=== PATIENT | male | born 1970 | race Caucasian/White ===

== ENCOUNTER 2020-03-17 14:42 | Emergency (ER) | payer MEDICAID, SELFPAY ==
[2020-03-17 14:45] VITALS: BP 156/87; PULSE 63; RESP 18; TEMP 36.4; O2SAT 98
--- NOTE | 2020-03-17 14:51 | ED.GENADUL_ITS ---
Discharge Plan Disposition Patient Disposition: HOME Condition: Stable Discharge Details Chief Complaint: AnimalBite Clinical Impression: Dog bite of left wrist Primary Care Provider: Huyen Mallory ED Provider: Omkar Calero Home Meds and New Rx's Prescriptions: New amoxicillin-pot clavulanate 875-125 mg tablet 1 tab PO BID 7 Days Qty: 14 RF: 0 Discharge Instructions Instructions: Animal Bite (ED) Additional Instructions: Please take Augmentin as prescribed. Your dog bite will be reported by our staff to the [facility] offices. Return to ER for any acute concern. Medical Decision Making 49-year-old male bitten by a stray dog at the [facility] yesterday. Now reports mild erythema at the area of the puncture wounds. States the dog was not acting rabid and that the bite is to be reported. I will place the patient on Augmentin empirically for probable early cellulitis. He is stable for discharge. HPI General Mode of arrival: ambulatory . Date/Time Provider Initiated Documentation: 03/17/20 14:44 . Limitations to Documentation: no limitations . Information obtained by: patient . History of Present Illness 49 year old M presents to the emergency department with the chief complaint of Left wrist dog bite yesterday, described as mild, Quality is described as dull, and is localized to the left and upper extremity. Patient reports no radiation. Patient started experiencing this hour(s) and it has been constant. No relieving factors improve symptom(s), No exacerbating factors reported . Patient notes denies fever/chills. Patient did receive the following treatments prior to arrival, other (Cleansed and soaked at home) Related Data Home Medications Medication Instructions Recorded Confirmed amoxicillin-pot clavulanate 1 tab PO BID 7 Days #14 tab 03/17/20 Previous Rx's Medication Instructions Recorded amoxicillin-pot clavulanate 1 tab PO BID 7 Days #14 tab 03/17/20 Allergies Allergy/AdvReac Type Severity Reaction Status Date / Time No Known Allergies Allergy Unverified 03/17/20 14:49 General Stated Complaint: AnimalBite VINCENT: 4 Review of Systems Narrative: Tetanus up-to-date. States he does not believe the dog was rabid, dog bite to be reported. 4 systems reviewed and otherwise negative [facility] Social History Smoking/Tobacco Use Status: Current every day Alcohol Intake: current Do you feel safe at home: Yes Exam Narrative Exam Narrative: GEN: awake, alert, oriented 3. Pleasant, well groomed, interactive. HEAD: Normocephalic, atraumatic EXT: Full ROM, no edema, there is 2 puncture wounds present on the ulnar aspect of the patient's left wrist. Minimal surrounding erythema. Full range of motion, no fluctuance. Neuro: Grossly normal neurologic exam, conversant, interactive. Psych: Speech fluent, thoughts congruent, affect normal Course Vital Signs Vital signs: Vital Signs Temperature 36.4 C L 03/17/20 14:45 Pulse 63 03/17/20 14:45 Respiratory Rate 18 03/17/20 14:45 Blood Pressure 156/87 H 03/17/20 14:45 Pulse Oximetry 98 03/17/20 14:45 Temperature 36.4 C L 03/17/20 14:45 Temperature Source Skin 03/17/20 14:45 Pulse 63 03/17/20 14:45 Respiratory Rate 18 03/17/20 14:45 Respiratory Effort Non-Labored 03/17/20 14:49 Blood Pressure 156/87 H 03/17/20 14:45 Blood Pressure Position Supine 03/17/20 14:45 Pulse Oximetry 98 03/17/20 14:45 Oxygen Delivery Method Room Air 03/17/20 14:45 Oxygen Flow Rate 0 03/17/20 14:45 Pain Level 0 03/17/20 14:45
[2020-03-17] MEDS: Amoxicillin 875/Clav. 125 TAB PO (15:04)
--- NOTE | 2020-03-17 16:32 | NUR.NOTE ---
Addendum entered by Radha Beach 03/18/20 12:25: Spoke with Ernestina Murillo about the animalbite and she is aware of the incident. Radha Beach Original Note: Message left for Ernestina [facility] [place] to report dog bite. Asked that she please call back. Form faxed to [facility].Nursing Note:
== END 2020-03-17 15:09 | disposition home or self-care (01) ==
PROVIDERS: Emergency Provider Emergency Medicine; PCP Pediatrics Pediatric Rheumatology
DX: S61.552A Open bite of left wrist, initial encounter (principal); W54.0XXA Bitten by dog, initial encounter
CPT/HCPCS: 99283

== ENCOUNTER 2020-11-19 16:41 | Outpatient (REF) | payer MEDICAID, SELFPAY ==
[2020-11-19 14:03] LABS: HCT 42.1 % (40.0-50.0); HGB 13.9 g/dL (13.5-17.5); MCH 29.6 pg (27.0-33.0); MCV 89.6 fL (80-95); MPV 10.8 fL (8.0-11.0); Platelet Count 193 10^3/uL (130-400); RDW 12.6 % (11.8-14.1); RDW-SD 41.5 fL; WBC 5.95 10^3/uL (4.4-10.8)
[2020-11-19 14:18] LABS: Hemoglobin A1C 5.8 % (<5.7)
[2020-11-19 14:57] LABS: ALT 24 U/L (16-63); AST 16 U/L (15-37); Albumin 3.9 g/dL (3.4-5.0); Alkaline Phosphatase 58 U/L (46-116); Anion Gap 7.7 mmol/L (3-11); BUN 14 mg/dL (7-18); Bilirubin, Total 0.7 mg/dL (0.2-1.0); CO2 30.3 mmol/L (21.0-32.0); CREATININE 0.9 mg/dL (0.70-1.30); Calcium 9.3 mg/dL (8.5-10.1); Calculated LDL 129 mg/dL (<100); Chloride 105 mmol/L (98-107); Cholesterol 197 mg/dL (<200); Glucose 91 mg/dL (74-106); HDL Cholesterol 46 mg/dL (40-60); Potassium 4.2 mmol/L (3.5-5.1); Sodium 143 mmol/L (136-145); Total Protein 6.8 g/dL (6.4-8.2); Triglyceride 112 mg/dL (<150)
== END 2020-11-19 16:42 | disposition home or self-care (01) ==
LOC: NCHCN 16:41
PROVIDERS: PCP Pediatrics Pediatric Rheumatology; Visit Provider Nurse Practitioner Community Health
DX: R73.03 Prediabetes (principal); I10 Essential (primary) hypertension; F17.210 Nicotine dependence, cigarettes, uncomplicated; J44.9 Chronic obstructive pulmonary disease, unspecified; Z68.32 Body mass index [BMI] 32.0-32.9, adult
CPT/HCPCS: 80053; 80061; 85027; 83036

== ENCOUNTER 2021-04-26 16:38 | Outpatient (REF) | payer MEDICAID, SELFPAY | END 2021-04-26 16:39 | disposition home or self-care (01) | LOC: NCHCN 16:38 | PROVIDERS: PCP Pediatrics Pediatric Rheumatology; Visit Provider Nurse Practitioner Community Health | DX: L08.9 Local infection of the skin and subcutaneous tissue, unspecified (principal) | CPT/HCPCS: 87070; 87186; 87205 ==

== ENCOUNTER 2021-08-10 17:44 | Outpatient (REF) | payer MEDICAID, SELFPAY ==
[2021-08-10 22:12] LABS: ALT 42 U/L (16-63); AST 23 U/L (15-37); Albumin 3.8 g/dL (3.4-5.0); Alkaline Phosphatase 60 U/L (46-116); Anion Gap 3.9 mmol/L (3-11); BUN 14 mg/dL (7-18); Bilirubin, Total 0.4 mg/dL (0.2-1.0); CO2 32.1 mmol/L (21.0-32.0); CREATININE 0.7 mg/dL (0.70-1.30); Calcium 9.2 mg/dL (8.5-10.1); Chloride 104 mmol/L (98-107); Glucose 107 mg/dL (74-106); Potassium 4.5 mmol/L (3.5-5.1); Sodium 140 mmol/L (136-145); Total Protein 6.9 g/dL (6.4-8.2)
== END 2021-08-10 17:45 | disposition home or self-care (01) ==
LOC: NCHCN 17:44
PROVIDERS: PCP Pediatrics Pediatric Rheumatology; Visit Provider Nurse Practitioner Family
DX: I10 Essential (primary) hypertension (principal); F11.11 Opioid abuse, in remission
CPT/HCPCS: 80053

== ENCOUNTER 2022-01-06 17:18 | Outpatient (REF) | payer MEDICAID, SELFPAY ==
[2022-01-06 20:26] LABS: Anion Gap 7.5 mmol/L (3-11); BUN 19 mg/dL (7-18); CO2 33.5 mmol/L (21.0-32.0); CREATININE 0.9 mg/dL (0.70-1.30); Calcium 9.5 mg/dL (8.5-10.1); Chloride 99 mmol/L (98-107); Glucose 79 mg/dL (74-106); Potassium 3.8 mmol/L (3.5-5.1); Sodium 140 mmol/L (136-145)
== END 2022-01-06 17:19 | disposition home or self-care (01) ==
LOC: NCHCN 17:18
PROVIDERS: PCP Pediatrics Pediatric Rheumatology; Visit Provider Nurse Practitioner Family
DX: I10 Essential (primary) hypertension (principal)
CPT/HCPCS: 80048

== ENCOUNTER 2022-09-29 18:31 | Outpatient (REF) | payer MEDICAID, SELFPAY ==
[2022-09-29 21:09] LABS: Hemoglobin A1C 6.1 % (<5.7)
[2022-09-29 21:24] LABS: Anion Gap 5.7 mmol/L (3-11); BUN 16 mg/dL (7-18); CO2 31.3 mmol/L (21.0-32.0); CREATININE 0.9 mg/dL (0.70-1.30); Calcium 9.6 mg/dL (8.5-10.1); Calculated LDL 100 mg/dL (<100); Chloride 106 mmol/L (98-107); Cholesterol 182 mg/dL (<200); Estimated GFR 102.12 (mL/min/1.73m2); Glucose 92 mg/dL (74-106); HDL Cholesterol 58 mg/dL (40-60); Potassium 4.4 mmol/L (3.5-5.1); Sodium 143 mmol/L (136-145); Triglyceride 120 mg/dL (<150)
== END 2022-09-29 18:32 | disposition home or self-care (01) ==
LOC: NCHCN 18:31
PROVIDERS: PCP Pediatrics Pediatric Rheumatology; Visit Provider Nurse Practitioner Family
DX: I10 Essential (primary) hypertension (principal); R73.03 Prediabetes; E66.8 Other obesity
CPT/HCPCS: 80048; 80061; 83036

== ENCOUNTER 2022-12-07 17:38 | Outpatient (REF) | payer MEDICAID, SELFPAY ==
[2022-12-07 22:10] LABS: ALT 26 U/L (16-63); AST 28 U/L (15-37); Alkaline Phosphatase 74 U/L (46-116); Bilirubin, Direct 0.1 mg/dL (0.0-0.2); Bilirubin, Total 0.5 mg/dL (0.2-1.0); Total Protein 7.4 g/dL (6.4-8.2)
== END 2022-12-07 17:39 | disposition home or self-care (01) ==
LOC: NCHCN 17:38
PROVIDERS: PCP Pediatrics Pediatric Rheumatology; Visit Provider Nurse Practitioner Family
DX: I10 Essential (primary) hypertension (principal); Z51.81 Encounter for therapeutic drug level monitoring
CPT/HCPCS: 80076

== ENCOUNTER 2023-02-28 18:39 | Outpatient (REF) | payer MEDICAID, SELFPAY ==
[2023-02-28 21:41] LABS: ALT 31 U/L (16-63); AST 26 U/L (15-37); Albumin 3.8 g/dL (3.4-5.0); Alkaline Phosphatase 79 U/L (46-116); Anion Gap 8.7 mmol/L (3-11); BUN 11 mg/dL (7-18); Bilirubin, Total 0.5 mg/dL (0.2-1.0); CO2 32.3 mmol/L (21.0-32.0); Calcium 9.5 mg/dL (8.5-10.1); Chloride 102 mmol/L (98-107); Glucose 88 mg/dL (74-106); Potassium 3.9 mmol/L (3.5-5.1); Sodium 143 mmol/L (136-145); Total Protein 7.1 g/dL (6.4-8.2)
[2023-03-02 11:09] LABS: HIV-1/2 Ag & Ab Screen Negative (Negative)
[2023-03-02 13:40] LABS: Hepatitis C Ab w Rflx HCV PCR Negative (Negative)
== END 2023-02-28 18:40 | disposition home or self-care (01) ==
LOC: NCHCN 18:39
PROVIDERS: PCP Pediatrics Pediatric Rheumatology; Visit Provider Nurse Practitioner Family
DX: Z51.81 Encounter for therapeutic drug level monitoring (principal); F11.11 Opioid abuse, in remission
CPT/HCPCS: 80053; 86803; 87389

== ENCOUNTER 2023-07-05 18:03 | Outpatient (REF) | payer MEDICAID, SELFPAY ==
--- OUTSIDE RECORDS SUMMARY | 2023-07-05 18:05 | XMS_ITS | Continuity of Care Document ---
Author Name Unknown Organization [facility] Address [address] [place] [address] Phone Care Team Providers Care Drafter Name Role Phone Jessica DMD, Gopichand Unavailable Unav ailable Allergies, Adverse Reactions, Alerts Substance Reaction Status Criticality No Known allergies Medications Medication Instructions Dosage Effective Dates (start - stop) Status Comments Lomotil 2.5 mg-0.025 mg Tab take 1 Tablet (2.5MG) by oral route 4 times every day as needed for DIARRHEA 2.5 MG - Active promethazine 25 mg Tab take 1 tablet (25MG) by oral route 3 times every day as needed for NAUSEA 25 MG - Active clonidine 0.1 mg Tab take 1 tablet (0.1MG) by ORAL route every 4 hours as needed for withdrawl symptoms 0.1 MG - Active AVINZA (unknown strength) take 1 capsule by oral route every 24 hours Not Available - Active METHADONE HCL (unknown strength) take 1 tablet by oral route every 4 hours as needed Not Available - Active Procedures Procedure Date Intraoral Periapical First Cam 12 Limit Oral Eval-prob Focused Urgent Care Intraor Periapical Ea Add Film 12 Extraction, Erupted Tooth Root 12 Treatment Plan In Progress Extraction, Erupted Tooth Root 12 Intraoral Periapical First Cam 11 Intraor Periapical Ea Add Film 11 Limit Oral Eval-prob Focused Ur[facility] Extraction, Erupted Tooth Root 11 Urgent Care Extraction, Erupted Tooth Root 11 Offic/outpt E&m New Minor 10mi 11 Advance Directives Directive Yes / No Effective Date File Name No Information Encounters Encounter Description Practice Location Reason(s) For Visit Diagnoses Date Provider Providers Copied on Encounter [facility] , [address] [place] [address], [id number], tel:[phone] [facility] 2 Vallabhaneni Gopichand. [address] [place] [address], [id number], [place]. tel:[phone] [address] [place] [address] , [address] [place] [address], [id number], tel:[phone] [facility] 1 Vallabhaneni Gopichand. [address] [place] [address], [id number], [place]. tel:[phone] Offic/outpt E&m New Minor 10[facility] , [address] [place] [address], [id number], tel:[phone] [facility] establish care (chief complaint) sleep apnea (chief complaint) chronic pain (chief complaint) OPIOID DEPENDENCE-CONT INSLEEP APNEA NOSCHRONIC PAIN SYNDROMEFRACTUR E CALCANEUS-CLOSE 1 No Information Family History Family Member Type Diagnosis Age At Onset No Information Payers Payer name Insurance type Covered republican ID Crystal noble(s) [employer] [id number] Social History Type Description Quantity Date Captured Comments Sex Male Smoking Status No Information Chief Complaint And Reason For Visit No Information Reason For Referral Reason For Referral No Information History Of Present Illness Encounter Date Complaint History Of Prese nt Illness No Information Functional Status Date Functional Assessmen t No Information Instructions Date Instruction Additional Infor mation No Information Assessments Type Assessment Date No Information Patient Care Teams Name Effective Dates (start - stop) Status Members No Information
[2023-07-05 22:04] LABS: BUN 13 mg/dL (7-18); CREATININE 0.9 mg/dL (0.70-1.30); Calcium 9.6 mg/dL (8.5-10.1); Estimated GFR 101.49 (mL/min/1.73m2); Glucose 83 mg/dL (74-106)
[2023-07-05 22:06] LABS: Albumin 3.6 g/dL (3.4-5.0); Bilirubin, Total 0.6 mg/dL (0.2-1.0); Total Protein 7.2 g/dL (6.4-8.2)
[2023-07-05 22:07] LABS: ALT 36 U/L (16-63); AST 38 U/L (15-37); Alkaline Phosphatase 61 U/L (46-116); Anion Gap 5.7 mmol/L (3-11); CO2 28.3 mmol/L (21.0-32.0); Chloride 101 mmol/L (98-107); Potassium 4.4 mmol/L (3.5-5.1); Sodium 135 mmol/L (136-145)
== END 2023-07-05 18:04 | disposition home or self-care (01) ==
LOC: NCHCN 18:03
PROVIDERS: PCP Pediatrics Pediatric Rheumatology; Visit Provider Nurse Practitioner Family
DX: F11.21 Opioid dependence, in remission (principal)
CPT/HCPCS: 80053

== ENCOUNTER 2023-11-02 18:33 | Outpatient (REF) | payer MEDICAID, SELFPAY ==
[2023-11-02 21:02] LABS: ALT 30 U/L (16-63); AST 28 U/L (15-37); Albumin 3.9 g/dL (3.4-5.0); Alkaline Phosphatase 77 U/L (46-116); Bilirubin, Direct 0.1 mg/dL (0.0-0.2); Bilirubin, Total 0.6 mg/dL (0.2-1.0); Total Protein 7.4 g/dL (6.4-8.2)
== END 2023-11-02 18:34 | disposition home or self-care (01) ==
LOC: NCHCN 18:33
PROVIDERS: PCP Pediatrics Pediatric Rheumatology; Visit Provider Nurse Practitioner Family
DX: Z51.81 Encounter for therapeutic drug level monitoring (principal)
CPT/HCPCS: 80076

== ENCOUNTER 2024-06-11 15:09 | Outpatient (REF) | payer MEDICAID, SELFPAY ==
[2024-06-11 21:54] LABS: ALT 25 U/L (16-63); AST 20 U/L (15-37); Albumin 3.8 g/dL (3.4-5.0); Alkaline Phosphatase 66 U/L (46-116); BUN 11 mg/dL (7-18); Bilirubin, Total 0.54 mg/dL (0.2-1.0); Calcium 9.7 mg/dL (8.5-10.1); Calculated LDL 109 mg/dL (<100); Chloride 102 mmol/L (98-107); Cholesterol 194 mg/dL (<200); Estimated GFR 89.44 (mL/min/1.73m2); Glucose 91 mg/dL (74-106); HDL Cholesterol 58 mg/dL (40-60); Potassium 4.4 mmol/L (3.5-5.1); Sodium 143 mmol/L (136-145); Total Protein 7.5 g/dL (6.4-8.2); Triglyceride 139 mg/dL (<150)
== END 2024-06-11 15:10 | disposition home or self-care (01) ==
LOC: NCHCN 15:09
PROVIDERS: PCP Pediatrics Pediatric Rheumatology; Visit Provider Nurse Practitioner Family
DX: F11.21 Opioid dependence, in remission (principal); I10 Essential (primary) hypertension
CPT/HCPCS: 80053; 80061

== ENCOUNTER 2024-11-26 03:27 | Outpatient (REF) | payer MEDICAID, SELFPAY ==
[2024-11-26 22:04] LABS: ALT 37 U/L (16-63); AST 33 U/L (15-37); Albumin 3.9 g/dL (3.4-5.0); Alkaline Phosphatase 64 U/L (46-116); Bilirubin, Total 0.5 mg/dL (0.2-1.0); Total Protein 7.4 g/dL (6.4-8.2)
[2024-11-26 22:42] LABS: Bilirubin, Direct 0.1 mg/dL (0.0-0.2)
== END 2024-11-26 03:28 | disposition home or self-care (01) ==
LOC: NCHCN 03:27
PROVIDERS: PCP Pediatrics Pediatric Rheumatology; Visit Provider Physician Assistant
DX: R94.5 Abnormal results of liver function studies (principal); F11.21 Opioid dependence, in remission
CPT/HCPCS: 80076

== ENCOUNTER 2025-02-26 09:46 | Outpatient (REF) | payer MEDICAID, SELFPAY ==
[2025-02-26 15:08] LABS: HCT 46.9 % (40.0-50.0); HGB 15.5 g/dL (13.5-17.5); MCH 28.9 pg (27.0-33.0); MCHC 33.0 % (32.0-36.0); MCV 87 fL (80-95); MPV 10.7 fL (8.0-11.0); Platelet Count 213 10^3/uL (130-400); RBC 5.37 10^6/uL (4.36-5.78); RDW 13.0 % (11.8-14.1); RDW-SD 41.8 fL; WBC 6.80 10^3/uL (4.4-10.8)
[2025-02-26 15:55] LABS: Hemoglobin A1C 5.8 % (<5.7)
[2025-02-26 16:05] LABS: ALT 26 U/L (16-63); AST 22 U/L (15-37); Albumin 4.3 g/dL (3.4-5.0); Alkaline Phosphatase 79 U/L (46-116); Anion Gap 6.0 mmol/L (3-11); BUN 17 mg/dL (7-18); Bilirubin, Total 0.7 mg/dL (0.2-1.0); CO2 32.0 mmol/L (21.0-32.0); Calcium 10.0 mg/dL (8.5-10.1); Calculated LDL 122 mg/dL (<100); Chloride 101 mmol/L (98-107); Cholesterol 202 mg/dL (<200); Estimated GFR 100.86 (mL/min/1.73m2); Glucose 101 mg/dL (74-106); HDL Cholesterol 54 mg/dL (>or=40); Potassium 4.0 mmol/L (3.5-5.1); Sodium 139 mmol/L (136-145); Total Protein 7.9 g/dL (6.4-8.2); Triglyceride 133 mg/dL (<150)
== END 2025-02-26 09:47 | disposition home or self-care (01) ==
LOC: NCHCN 09:46
PROVIDERS: PCP Pediatrics Pediatric Rheumatology; Visit Provider Physician Assistant
DX: R09.02 Hypoxemia (principal); R73.03 Prediabetes; Z13.220 Encounter for screening for lipoid disorders
CPT/HCPCS: 80053; 80061; 85027; 83036